=== PATIENT | male | born 1965 | race Asian ===

== ENCOUNTER 2019-01-28 10:30 | Day surgery (SDC) | payer OTHER ==
[~2019-01-28] VITALS: Ht 167.6 cm; Wt 89.0 kg
[2019-01-28] VITALS (9 sets, daily range): BP systolic 126–145; BP diastolic 78–101; PULSE 62–87; TEMP 98.3
[2019-01-28] MEDS ORDERED: ROBAXIN 50500 MG/TAB PO (10:45)
[2019-01-28] MEDS ORDERED: MOBIC15 MG PO (10:45)
[2019-01-28] MEDS ORDERED: LEXAPRO 10MG10 MG PO (10:46)
[2019-01-28] MEDS ORDERED: ATARAX 25MG25 MG/TAB PO (10:52)
[2019-01-28] MEDS ORDERED: LOPID 600M600 MG/TAB PO ×2 (10:54)
[2019-01-28] MEDS ORDERED: COZAAR100 MG PO (10:55)
[2019-01-28] MEDS ORDERED: NEURONTIN300 MG/CAP PO (10:55)
[2019-01-28] MEDS ORDERED: LUNESTA3 MG PO (10:57)
[2019-01-28] MEDS ORDERED: REVATIO20 MG PO (10:57)
[2019-01-28 11:18] LABS: MEAN CELL VOLUME 86 fl (80.0-100.0); MEAN CORPUSCULAR HEMOGLOBIN 29 pg (27.0-31.0); MEAN CORPUSCULAR HGB CONC 33 g/dl (33.0-37.0); MEAN PLATELET VOLUME 9.4 fl (7.4-10.4); PLATELET COUNT 297 K/mm3 (130-400); RED BLOOD COUNT 4.87 M/mm3 (4.20-5.60); REDCELL DISTRIBUTION WIDTH-CV 12.3 % (11.5-14.5)
[2019-01-28 11:32] LABS: CALCIUM 9.6 mg/dL (8.4-10.2); CREATININE, serum 0.8 (0.66-1.25); INR 0.9 (0.8-3.0); POTASSIUM 3.7 mmol/L (3.4-5.0); PROTHROMBIN TIME 10.3 SECONDS (9.7-12.8)
--- NOTE | 2019-01-28 15:35 | NUR ---
SEE MERGE REPORT FOR MEDICATION ADMINISTRATION AND INTRA/POST SEDATION ASSESSMENTS.
[2019-01-28] MEDS ORDERED: ASPIRIN 81M81 MG/TA2 PO (16:02)
--- NOTE | 2019-01-28 16:02 | NUR ---
Back from [employer]. Alert and oriented, denies pain and needs at this time. Right radial TR Band with 15 cc air CD&I, good pulses noted and cap refill < 3 secs noted. Spouse bedside VSS
--- NOTE | 2019-01-28 18:17 | NUR ---
Right radial band completely deflated over 25 minutes, no bleeding noted, pressure dressing applied. INT discontinued intact. Discharge instructions given. Transferred to private car by [email or web address]
== END 2019-01-28 18:30 | disposition home or self-care (01) ==
LOC: COL.CAR 10:30
PROVIDERS: Internal Medicine Cardiovascular Disease
DX: I25.10 Atherosclerotic heart disease of native coronary artery without angina pectoris (principal); R09.89 Other specified symptoms and signs involving the circulatory and respiratory systems; I10 Essential (primary) hypertension; E78.5 Hyperlipidemia, unspecified; G47.33 Obstructive sleep apnea (adult) (pediatric); F41.9 Anxiety disorder, unspecified; F32.9 Major depressive disorder, single episode, unspecified; F43.10 Post-traumatic stress disorder, unspecified; Z82.49 Family history of ischemic heart disease and other diseases of the circulatory system; Z84.89 Family history of other specified conditions; Z98.890 Other specified postprocedural states; I83.93 Asymptomatic varicose veins of bilateral lower extremities; Z87.891 Personal history of nicotine dependence; Z79.899 Other long term (current) drug therapy
CPT/HCPCS: C1887; J1644; J2250; J3010; Q9967